=== PATIENT | male | born 1980 | race Caucasian/White ===

== ENCOUNTER → 2018-08-22 18:01 | Outpatient (CLI) | payer BC, SELFPAY ==
[2018-08-22 18:16] LABS: Add Manual Diff / Slide Review NO; Basophils Percent Auto 0.7 % (0-2); Eosinophils Percent Auto 1.6 % (2-4); Hematocrit 42.9 % (41-53); Hemoglobin 14.3 g/dL (13.5-17.5); Lymphocytes Percent Auto 30.3 % (25-40); Mean Corpuscular HGB Conc 33.4 % (30-36); Mean Corpuscular Hemoglobin 29.3 PG (26-34); Mean Corpuscular Volume 87.6 fL (80-100); Monocytes Percent Auto 6.9 % (3-14); Neutrophils Absolute Auto 5200 /uL (3000-5900); Neutrophils Percent Auto 60.5 % (50-75); Platelet Count 211 X10^3/uL (150-400); White Blood Cell Count 8.5 X10^3/uL (4.5-11.0)
[2018-08-22 18:23] LABS: INR 1.1 (0.9-1.3); Prothrombin Time 12.1 SECONDS (10.1-12.7)
[2018-08-22 18:28] LABS: Alanine Aminotransferase 41 IU/L (21-72); Albumin 4.8 g/dL (3.5-5.0); Albumin Globulin Ratio 1.5 (1.0-2.8); Alkaline Phosphatase 67 U/L (38-126); Aspartate Aminotransferase 26 IU/L (17-59); BUN Creatinine Ratio 15.6 (6-22); Bilirubin Total 0.7 mg/dL (0.2-1.3); Blood Urea Nitrogen 14 mg/dL (9-20); Calcium 9.3 mg/dL (8.4-10.2); Carbon Dioxide 29 mmol/L (22-32); Chloride 103 mmol/L (98-107); Estimated Glomerular Filt Rate > 60.0 mL/min (>60); Globulin 3.1 g/dL (1.7-4.1); Glucose 90 mg/dL (70-100); HEMOLYSIS < 15 (0-50); Sodium 142 mmol/L (137-145); Total Protein 7.9 g/dL (6.3-8.2)
== END ==
PROVIDERS: Visit Provider Physician Assistant
DX: R21 Rash and other nonspecific skin eruption (principal)
CPT/HCPCS: 36415; 80053; 85025; 85610

== ENCOUNTER 2018-11-16 11:00 | Emergency (ER) | payer BC, SELFPAY ==
[2018-11-16 11:14] VITALS: BP 130/86; PULSE 95; RESP 16; TEMP 36.7; O2SAT 96; BMI 29.9
--- NOTE | 2018-11-16 11:51 | PC.NURSE ---
pt reports, bilateral orthodoxy headache for 5 days, behind eyes at times and occasional radiating to occipital area. fever at home 101, took advil yesterday. treated at [facility] given toradol without relief. now with photosensitive, not sleeping due to pain.
--- NOTE | 2018-11-16 12:06 | ED_ITS ---
HPI - Headache <Lisandra Sauceda PA-C - Last Filed: 11/16/18 21:19> General Chief Complaint: Headache Stated Complaint: HEADACHE Time Seen by Provider: 11/16/18 11:22 Source: patient Mode of arrival: ambulatory Limitations: no limitations History of Present Illness HPI Narrative: This healthy 38-year-old male comes to ED due to persistent headache. He states that this started 5 days ago and has been persistent without exacerbating or alleviating features aside from perhaps some light sensitivity off and on. He states initially, day before it started and 1st day he had a fever of 101 at home. He states he has felt warm intermittently but fever has not persisted, was 99.2 this morning. He has had a little bit of nasal congestion and watery eyes. He has not had any vision change. He has not had any nausea or vomiting. He denies any earache, sinus pain, or sore throat. He has not had cough or other URI symptoms. No rashes. He denies any jaw claudication. He denies neck or back pain or body aches. He denies any known exposures or recent travel. He does not have any history of headaches. [id number] medicines were not effective so he went to the walk-in clinic yesterday and was given a Toradol injection which he thought might have dulled the headache for a few hours, but then was worse again last night. He states that headache has kept him from sleep. He does not have any family history of migraines or headache Related Data Previous Rx's Medication Instructions Recorded sumatriptan 50 mg tablet 50 mg PO Q2-4H PRN #20 tab 11/15/18 cyclobenzaprine 20 mg PO Q8H #14 tab 11/16/18 Allergies Allergy/AdvReac Type Severity Reaction Status Date / Time No Known Drug Allergies Allergy Verified 11/16/18 11:14 Review of Systems <Lisandra Sauceda PA-C - Last Filed: 11/16/18 21:19> Review of Systems ROS Unobtainable: All systems reviewed & are unremarkable except as noted in HPI and below PFSH <LEDA Alarcon Last Filed: 11/16/18 21:19> Comment: +EtOH, no THC or street drugs Exam <LEDA Alarcon Last Filed: 11/16/18 21:19> Narrative Exam Narrative: GENERAL APPEARANCE: Patient sitting comfortably, in no distress. HEENT: PERRL, EOMI, normal TMs and oropharynx was a little PND, no sinus TTP. Normal symmetric temporal artery pulsations NECK: Supple, no masses LUNGS: Clear to auscultation bilaterally. HEART: Rate and rhythm regular without murmur, normal S1 and S2, no S3 or S4. ABDOMEN: Soft, NT, ND, + BS x 4 quadrants NEUROLOGIC: Alert and oriented, normal speech, and coordination. MUSCULOSKELETAL: Full Csp AROM. No Csp TTP Initial Vital Signs Initial Vital Signs: Vital Signs Temperature 98.0 F 11/16/18 11:14 Pulse Rate 95 H 11/16/18 11:14 Respiratory Rate 16 11/16/18 11:14 Blood Pressure 130/86 11/16/18 11:14 Pulse Oximetry 96 11/16/18 11:14 <Wilbert Godinez DO - Last Filed: 11/17/18 08:21> Initial Vital Signs Initial Vital Signs: Vital Signs Temperature 98.0 F 11/16/18 11:14 Pulse Rate 95 H 11/16/18 11:14 Respiratory Rate 16 11/16/18 11:14 Blood Pressure 130/86 11/16/18 11:14 Pulse Oximetry 96 11/16/18 11:14 Course <Lisandra Sauceda PA-C - Last Filed: 11/16/18 21:19> Additional Information: Patient does not have acute neurologic findings. He is feeling somewhat improved prior to discharge, and this may be tension headache as he felt somewhat improved after muscle relaxant and sleeping a little bit. He has not been sleeping well. Reviewed findings with Dr. Godinez who was agreeable with workup and plan to discharge. Cautioned patient on need to return if acutely worsening symptoms and he is agreeable. He is able to follow up as an outpatient with the medical provider at his work. Orders Ordered: Discontinued Medications Cyclobenzaprine HCl (Flexeril) 10 mg PO NOW ONE Stop: 11/16/18 12:19 Last Admin: 11/16/18 12:58 Dose: 10 mg Sodium Chloride (Normal Saline 0.9%) 1,000 mls @ 1,000 mls/hr IV BOLUS ONE Stop: 11/16/18 13:17 Last Infusion: 11/16/18 14:43 Dose: 0 mls/hr Admin: 11/16/18 12:58 Dose: 1,000 mls/hr Ketorolac Tromethamine (Toradol) 30 mg IV NOW ONE Stop: 11/16/18 12:19 Last Admin: 11/16/18 12:58 Dose: 30 mg Vital Signs - 8 hr 11/16/18 14:04 11/16/18 14:58 Pulse Rate 79 67 Respiratory Rate 16 15 Blood Pressure 135/73 Blood Pressure [Right Arm] 136/57 L Pulse Oximetry 99 100 <Wilbert Godinez DO - Last Filed: 11/17/18 08:21> Orders Ordered: Discontinued Medications Cyclobenzaprine HCl (Flexeril) 10 mg PO NOW ONE Stop: 11/16/18 12:19 Last Admin: 11/16/18 12:58 Dose: 10 mg Sodium Chloride (Normal Saline 0.9%) 1,000 mls @ 1,000 mls/hr IV BOLUS ONE Stop: 11/16/18 13:17 Last Infusion: 11/16/18 14:43 Dose: 0 mls/hr Admin: 11/16/18 12:58 Dose: 1,000 mls/hr Ketorolac Tromethamine (Toradol) 30 mg IV NOW ONE Stop: 11/16/18 12:19 Last Admin: 11/16/18 12:58 Dose: 30 mg Vital Signs - 8 hr 11/16/18 14:04 11/16/18 14:58 Pulse Rate 79 67 Respiratory Rate 16 15 Blood Pressure 135/73 Blood Pressure [Right Arm] 136/57 L Pulse Oximetry 99 100 MDM - Headache <Lisandra Sauceda PA-C - Last Filed: 11/16/18 21:19> Lab Data Result diagrams: 11/16/18 13:09 11/16/18 13:09 Lab Results 11/16/18 11/16/18 11/16/18 Range/Units 13:09 13:09 13:09 WBC 6.9 (4.5-11.0) X10^3/uL RBC 5.05 (4.5-5.9) X10^6/uL Hgb 14.6 (13.5-17.5) g/dL Hct 43.2 (41-53) % MCV 85.6 (80-100) fL MCH 29.0 (26-34) PG MCHC 33.8 (30-36) % RDW 13.3 (11.6-14.8) % Plt Count 161 (150-400) X10^3/uL Neut % (Auto) 72.2 (50-75) % Lymph % (Auto) 15.3 L (25-40) % [place] % (Auto) 11.4 (3-14) % Eos % (Auto) 0.3 L (2-4) % Baso % (Auto) 0.8 (0-2) % Neut # (Auto) 5000 (8886-5798) /uL Lymph # (Auto) 1100 (5930-6510) /uL [place] # (Auto) 800 (0-900) /uL Eos # (Auto) 0 (0-450) /uL Baso # (Auto) 100 (0-100) /uL ESR 14 (0-15) MM/HR Sodium 138 (137-145) mmol/L Potassium 4.1 (3.4-5.1) mmol/L Chloride 102 (98-107) mmol/L Carbon Dioxide 27 (22-32) mmol/L BUN 9 (9-20) mg/dL Creatinine 0.80 (0.66-1.25) mg/dL Estimated GFR > 60.0 (>60) mL/min BUN/Creatinine Ratio 11.3 (6-22) Glucose 102 H (70-100) mg/dL Lactate 1.0 (0.7-2.1) mmol/L Calcium 8.9 (8.4-10.2) mg/dL Total Bilirubin 0.9 (0.2-1.3) mg/dL AST 34 (17-59) IU/L ALT 60 (21-72) IU/L Alkaline Phosphatase 71 (38-126) U/L C-Reactive Protein 5.4 H (<1.0) mg/dL Total Protein 7.6 (6.3-8.2) g/dL Albumin 4.3 (3.5-5.0) g/dL Globulin 3.3 (1.7-4.1) g/dL Albumin/Globulin Ratio 1.3 (1.0-2.8) Influenza A & B (PCR) (Negative) 11/16/18 Range/Units 13:09 WBC (4.5-11.0) X10^3/uL RBC (4.5-5.9) X10^6/uL Hgb (13.5-17.5) g/dL Hct (41-53) % MCV (80-100) fL MCH (26-34) PG MCHC (30-36) % RDW (11.6-14.8) % Plt Count (150-400) X10^3/uL Neut % (Auto) (50-75) % Lymph % (Auto) (25-40) % [place] % (Auto) (3-14) % Eos % (Auto) (2-4) % Baso % (Auto) (0-2) % Neut # (Auto) (9684-2566) /uL Lymph # (Auto) (5585-3518) /uL [place] # (Auto) (0-900) /uL Eos # (Auto) (0-450) /uL Baso # (Auto) (0-100) /uL ESR (0-15) MM/HR Sodium (137-145) mmol/L Potassium (3.4-5.1) mmol/L Chloride (98-107) mmol/L Carbon Dioxide (22-32) mmol/L BUN (9-20) mg/dL Creatinine (0.66-1.25) mg/dL Estimated GFR (>60) mL/min BUN/Creatinine Ratio (6-22) Glucose (70-100) mg/dL Lactate (0.7-2.1) mmol/L Calcium (8.4-10.2) mg/dL Total Bilirubin (0.2-1.3) mg/dL AST (17-59) IU/L ALT (21-72) IU/L Alkaline Phosphatase (38-126) U/L C-Reactive Protein (<1.0) mg/dL Total Protein (6.3-8.2) g/dL Albumin (3.5-5.0) g/dL Globulin (1.7-4.1) g/dL Albumin/Globulin Ratio (1.0-2.8) Influenza A & B (PCR) Negative (Negative) Imaging Data CT scan - head: Radiologist's impression: [address] [address] [address] Scan Report Signed Patient: Dinh Garner MR#: [id number] : 1980 Acct:[id number] Age/Sex: 38 / M Date of Service: 11/16/18 Loc: ED Accession Number: [id number] Procedure: CT head/brain wo con Ordering Provider: Lisandra Sauceda P.A-C PROCEDURE: CT HEAD/BRAIN WO CON INDICATIONS: atypical OSBORNE TECHNIQUE: Noncontrast 4.5 mm thick angled axial sections acquired from the foramen magnum to the vertex, with coronal and sagittal reformats. For radiation dose reduction, the following was used: automated exposure control, adjustment of mA and/or kV according to patient size. COMPARISON: None. FINDINGS: Image quality: Excellent. CSF spaces: Basal cisterns are patent. No extra-axial fluid collections. Ventricles are normal in size and shape. Brain: No midline shift. No intracranial masses or hemorrhage. Stone-white matter interface is normal. Skull and face: Calvarium and visualized facial bones are intact, without suspicious lesions. Sinuses: Visualized sinuses and mastoids are clear. IMPRESSION: Unremarkable intracranial study. No acute intracranial hemorrhage. No masses or mass effect can be seen. Dictated by: Michael Morrison M.D. on 11/16/2018 at 13:20 Approved by: Michael Morrison M.D. on 11/16/2018 at 13:21 <Wilbert Godinez DO - Last Filed: 11/17/18 08:21> Lab Data Lab Results 11/16/18 11/16/18 11/16/18 Range/Units 13:09 13:09 13:09 WBC 6.9 (4.5-11.0) X10^3/uL RBC 5.05 (4.5-5.9) X10^6/uL Hgb 14.6 (13.5-17.5) g/dL Hct 43.2 (41-53) % MCV 85.6 (80-100) fL MCH 29.0 (26-34) PG MCHC 33.8 (30-36) % RDW 13.3 (11.6-14.8) % Plt Count 161 (150-400) X10^3/uL Neut % (Auto) 72.2 (50-75) % Lymph % (Auto) 15.3 L (25-40) % [place] % (Auto) 11.4 (3-14) % Eos % (Auto) 0.3 L (2-4) % Baso % (Auto) 0.8 (0-2) % Neut # (Auto) 5000 (4867-0246) /uL Lymph # (Auto) 1100 (6881-6435) /uL [place] # (Auto) 800 (0-900) /uL Eos # (Auto) 0 (0-450) /uL Baso # (Auto) 100 (0-100) /uL ESR 14 (0-15) MM/HR Sodium 138 (137-145) mmol/L Potassium 4.1 (3.4-5.1) mmol/L Chloride 102 (98-107) mmol/L Carbon Dioxide 27 (22-32) mmol/L BUN 9 (9-20) mg/dL Creatinine 0.80 (0.66-1.25) mg/dL Estimated GFR > 60.0 (>60) mL/min BUN/Creatinine Ratio 11.3 (6-22) Glucose 102 H (70-100) mg/dL Lactate 1.0 (0.7-2.1) mmol/L Calcium 8.9 (8.4-10.2) mg/dL Total Bilirubin 0.9 (0.2-1.3) mg/dL AST 34 (17-59) IU/L ALT 60 (21-72) IU/L Alkaline Phosphatase 71 (38-126) U/L C-Reactive Protein 5.4 H (<1.0) mg/dL Total Protein 7.6 (6.3-8.2) g/dL Albumin 4.3 (3.5-5.0) g/dL Globulin 3.3 (1.7-4.1) g/dL Albumin/Globulin Ratio 1.3 (1.0-2.8) Influenza A & B (PCR) (Negative) 11/16/18 Range/Units 13:09 WBC (4.5-11.0) X10^3/uL RBC (4.5-5.9) X10^6/uL Hgb (13.5-17.5) g/dL Hct (41-53) % MCV (80-100) fL MCH (26-34) PG MCHC (30-36) % RDW (11.6-14.8) % Plt Count (150-400) X10^3/uL Neut % (Auto) (50-75) % Lymph % (Auto) (25-40) % [place] % (Auto) (3-14) % Eos % (Auto) (2-4) % Baso % (Auto) (0-2) % Neut # (Auto) (6590-2283) /uL Lymph # (Auto) (2989-8799) /uL [place] # (Auto) (0-900) /uL Eos # (Auto) (0-450) /uL Baso # (Auto) (0-100) /uL ESR (0-15) MM/HR Sodium (137-145) mmol/L Potassium (3.4-5.1) mmol/L Chloride (98-107) mmol/L Carbon Dioxide (22-32) mmol/L BUN (9-20) mg/dL Creatinine (0.66-1.25) mg/dL Estimated GFR (>60) mL/min BUN/Creatinine Ratio (6-22) Glucose (70-100) mg/dL Lactate (0.7-2.1) mmol/L Calcium (8.4-10.2) mg/dL Total Bilirubin (0.2-1.3) mg/dL AST (17-59) IU/L ALT (21-72) IU/L Alkaline Phosphatase (38-126) U/L C-Reactive Protein (<1.0) mg/dL Total Protein (6.3-8.2) g/dL Albumin (3.5-5.0) g/dL Globulin (1.7-4.1) g/dL Albumin/Globulin Ratio (1.0-2.8) Influenza A & B (PCR) Negative (Negative) Discharge Plan Departure Patient Disposition: Home Clinical Impression: Headache Discharge Date/Time: 11/16/18 14:59 Interventions: ED Discharge Assessment Last Done: 11/16/18 14:58 Instructions: DI for Headache Activity Restrictions/Additional Instructions: Since you are feeling a little bit better, you can return home and please try to rest in a dark, quiet room. You can increase the muscle relaxants to up to 2 tablets if you need. On exam today, your headache is most consistent with a tension headache, however since you had a fever at onset and have some light sensitivity, the features are really mixed. Your lab work was normal aside from 1 elevated inflammatory markers that is not specific for anyone problem. Please remember not to drive while taking the muscle relaxant as they can make you sleepy. Please add ibuprofen 800 mg every 8 hr as needed for pain and you can add Tylenol in addition. Sometimes these work well in combination with the muscle relaxants. As we talked about, you should return right away if you have any acutely worsening pain, or new symptoms such as vomiting, vision change, or recurrence of your fever. Otherwise, please follow-up at the [facility] in the next couple of days to check your progress and see whether any further testing or treatment is needed Prescriptions: New cyclobenzaprine 10 mg tablet 20 mg PO Q8H Qty: 14 RF: 0 No Action sumatriptan succinate 50 mg tablet 50 mg PO Q2-4H PRN (Reason: migraine headache) Qty: 20 RF: 0 Referrals: [facility], [place] [Other] <Wilbert Godinez DO - Last Filed: 11/17/18 08:21> Cosign ED Attending Anaature Attestation: I was immediately available in the department for consultation. Documentation has been reviewed. I agree with assessment and plan.
[2018-11-16] MEDS: KETOROLAC 60 MG/2 ML VIAL 30 MG IV (12:58)
[2018-11-16] MEDS: SODIUM CHLORIDE 0.9% 1,000 ML 1000 ML IV (12:58)
[2018-11-16] MEDS: CYCLOBENZAPRINE 10 MG TABLET PO (12:58)
[2018-11-16 13:07] VITALS: BP 135/72; PULSE 76; RESP 16; O2SAT 99
--- NOTE | 2018-11-16 13:09 | PC.NURSE ---
by nursing education specialist Mahad Cole
[2018-11-16 13:12] LABS: Add Manual Diff / Slide Review NO; Basophils Absolute Auto 100 /uL (0-100); Basophils Percent Auto 0.8 % (0-2); Eosinophils Absolute Auto 0 /uL (0-450); Eosinophils Percent Auto 0.3 % (2-4); Hematocrit 43.2 % (41-53); Hemoglobin 14.6 g/dL (13.5-17.5); Lymphocytes Absolute Auto 1100 /uL (1100-4500); Lymphocytes Percent Auto 15.3 % (25-40); Mean Corpuscular HGB Conc 33.8 % (30-36); Mean Corpuscular Volume 85.6 fL (80-100); Monocytes Absolute Auto 800 /uL (0-900); Monocytes Percent Auto 11.4 % (3-14); Neutrophils Absolute Auto 5000 /uL (1500-7000); Neutrophils Percent Auto 72.2 % (50-75); Platelet Count 161 X10^3/uL (150-400); Red Blood Cell Count 5.05 X10^6/uL (4.5-5.9); Red Cell Distribution Width 13.3 % (11.6-14.8); White Blood Cell Count 6.9 X10^3/uL (4.5-11.0)
[2018-11-16 13:27] LABS: Influenza A and B by PCR Rapid Negative (Negative)
[2018-11-16 13:33] LABS: Alanine Aminotransferase 60 IU/L (21-72); Albumin 4.3 g/dL (3.5-5.0); Albumin Globulin Ratio 1.3 (1.0-2.8); Alkaline Phosphatase 71 U/L (38-126); Aspartate Aminotransferase 34 IU/L (17-59); BUN Creatinine Ratio 11.3 (6-22); Bilirubin Total 0.9 mg/dL (0.2-1.3); Blood Urea Nitrogen 9 mg/dL (9-20); C-Reactive Protein Quant 5.4 mg/dL (<1.0); Calcium 8.9 mg/dL (8.4-10.2); Carbon Dioxide 27 mmol/L (22-32); Chloride 102 mmol/L (98-107); Estimated Glomerular Filt Rate > 60.0 mL/min (>60); Globulin 3.3 g/dL (1.7-4.1); Glucose 102 mg/dL (70-100); HEMOLYSIS < 15 (0-50); Potassium 4.1 mmol/L (3.4-5.1); Sodium 138 mmol/L (137-145); Total Protein 7.6 g/dL (6.3-8.2)
[2018-11-16 13:37] LABS: Erythrocyte Sedimentation Rate 14 MM/HR (0-15)
--- NOTE | 2018-11-16 13:44 | DI.CT.S_ITS ---
PROCEDURE: CT HEAD/BRAIN WO CON INDICATIONS: atypical OSBORNE TECHNIQUE: Noncontrast 4.5 mm thick angled axial sections acquired from the foramen magnum to the vertex, with coronal and sagittal reformats. For radiation dose reduction, the following was used: automated exposure control, adjustment of mA and/or kV according to patient size. COMPARISON: None. FINDINGS: Image quality: Excellent. CSF spaces: Basal cisterns are patent. No extra-axial fluid collections. Ventricles are normal in size and shape. Brain: No midline shift. No intracranial masses or hemorrhage. Stone-white matter interface is normal. Skull and face: Calvarium and visualized facial bones are intact, without suspicious lesions. Sinuses: Visualized sinuses and mastoids are clear. IMPRESSION: Unremarkable intracranial study. No acute intracranial hemorrhage. No masses or mass effect can be seen. Dictated by: Michael Morrison M.D. on 11/16/2018 at 13:20 Approved by: Michael Morrison M.D. on 11/16/2018 at 13:21
[2018-11-16 14:04] VITALS: BP 136/57; PULSE 79; RESP 16; O2SAT 99
--- NOTE | 2018-11-16 14:04 | PC.NURSE ---
pain level better, but still can feel the preassure, awaiting for ct result at this time
[2018-11-16 14:58] VITALS: BP 135/73; PULSE 67; RESP 15; O2SAT 100
== END 2018-11-16 14:59 | disposition home or self-care (01) ==
PROVIDERS: Emergency Provider Internal Medicine
DX: R51 Headache (principal)
CPT/HCPCS: 36591; 70450; 80053; 83605; 85025; 85651; 86140; 87400; 96361; 96374; 99283; 99284; J1885

== ENCOUNTER → 2019-08-24 09:11 | Outpatient (CLI) | payer BC, SELFPAY ==
[2019-08-24 10:35] LABS: Cholesterol 147 mg/dL (140-199); Glucose 98 mg/dL (70-100); HDL Cholesterol 40 mg/dL (40-60); LDL Cholesterol Calculated 88 mg/dL (<100); Triglycerides 97 mg/dL (35-150)
== END ==
PROVIDERS: Visit Provider Physician Assistant
DX: Z13.1 Encounter for screening for diabetes mellitus (principal); Z13.220 Encounter for screening for lipoid disorders; Z13.6 Encounter for screening for cardiovascular disorders
CPT/HCPCS: 36415; 80061; 82947

== ENCOUNTER → 2020-10-07 08:57 | Outpatient (CLI) | payer BC, SELFPAY ==
--- NOTE | 2020-10-07 08:59 | DI.RAD.S_ITS ---
PROCEDURE: XR LUMBAR SPINE 2-3V INDICATIONS: mid to low L spine tenderness after lifting TECHNIQUE: 3 views of the lumbar spine were acquired. COMPARISON: None. FINDINGS: Bones: 5 [id number] vertebrae are present. There is minimal levoconvex lumbar scoliotic curvature. No focal AP alignment abnormality is seen. No vertebral body compression fractures. No suspicious bony lesions. Soft tissues: Overlying bowel gas pattern is normal. No suspicious soft tissue calcifications. IMPRESSION: No significant plain film abnormality is seen. If it would be helpful for clinical management decision making, please consider a dedicated lumbar spine MRI for further evaluation (assuming that there is no contraindication). Dictated by: Michael Morrison M.D. on 10/07/2020 at 8:21 Approved by: Michael Morrison M.D. on 10/07/2020 at 8:23
== END ==
PROVIDERS: PCP Family Medicine; Referring Provider Physician Assistant; Visit Provider Physician Assistant
DX: M54.5 Low back pain (principal)
CPT/HCPCS: 72100

== ENCOUNTER → 2020-10-17 09:52 | Outpatient (CLI) | payer BC, SELFPAY ==
[2020-10-17 11:41] LABS: BUN Creatinine Ratio 15.9 (6-22); Blood Urea Nitrogen 13 mg/dL (9-20); Calcium 9.2 mg/dL (8.4-10.2); Carbon Dioxide 28 mmol/L (22-32); Chloride 105 mmol/L (98-107); Cholesterol 156 mg/dL (140-199); Estimated Glomerular Filt Rate > 60.0 mL/min (>60); Glucose 97 mg/dL (70-100); HDL Cholesterol 38 mg/dL (40-60); HEMOLYSIS < 15 (0-50); LDL Cholesterol Calculated 101 mg/dL (<100); Potassium 4.3 mmol/L (3.4-5.1); Sodium 137 mmol/L (137-145); Triglycerides 85 mg/dL (35-150)
== END ==
PROVIDERS: PCP Family Medicine; Referring Provider Family Medicine; Visit Provider Family Medicine
DX: Z00.00 Encounter for general adult medical examination without abnormal findings (principal); M54.5 Low back pain
CPT/HCPCS: 36415; 80048; 80061

== ENCOUNTER → 2021-04-10 09:51 | Outpatient (CLI) | payer BC, SELFPAY ==
--- NOTE | 2021-04-10 09:52 | DI.RAD.S_ITS ---
PROCEDURE: XR HUMERUS RT 2V INDICATIONS: right bicep tendon rupture TECHNIQUE: Two views of the humerus were acquired. COMPARISON: None. FINDINGS: Bones: No fractures or dislocations. No suspicious bony lesions. Soft tissues: No suspicious soft tissue calcifications. IMPRESSION: No bony abnormalities. Dictated by: Vianey Frausto M.D. on 04/10/2021 at 11:05 Approved by: Vianey Frausto M.D. on 04/10/2021 at 11:05
== END ==
PROVIDERS: PCP Family Medicine; Referring Provider Physician Assistant; Visit Provider Physician Assistant
DX: S46.211A Strain of muscle, fascia and tendon of other parts of biceps, right arm, initial encounter (principal)
CPT/HCPCS: 73060